=== PATIENT | male | born 1970 | race Caucasian/White ===

== ENCOUNTER 2016-07-15 15:32 | Outpatient (CLI) | payer OTHER ==
--- NOTE | 2016-07-15 16:06 | DIAGNOSTIC IMAGING REPORT ---
PROCEDURE: XR CHEST 2 VIEW INDICATION: HYPERTENSION TECHNIQUE: PA and lateral views. COMPARISON: None. FINDINGS: Lungs are clear. Heart and mediastinum are normal. Thorax is normal. IMPRESSION: 1. Negative chest.
== END 2016-07-15 23:00 ==
LOC: XR SRH 15:32
DX: G47.00 Insomnia, unspecified (principal); I10 Essential (primary) hypertension